=== PATIENT | female | born 1945 | race Caucasian/White ===

== ENCOUNTER → 2016-10-22 | Outpatient (CLI) | payer MEDICARE, OTHER ==
[~2016-10-22] MED LIST: ASCO500T9 PO; CALC1TAB16 PO; CHOL200024 PO; CYAN10009 PO; ESTR42.53 VAGINALLY; FERR325C PO; FISH1CAP28 PO; FLUT16SP NAS; PROP10TA10 PO; ZOLP5TAB8 PO
== END ==
LOC: WC.BC 12:30
DX: Z12.31 Encounter for screening mammogram for malignant neoplasm of breast (principal)
CPT/HCPCS: 77063; G0202